=== PATIENT | female | born 1990 | race Caucasian/White ===

== ENCOUNTER 2017-02-21 06:50 | Inpatient (IN) ==
[2017-02-21] MEDS ORDERED: PEPCID PO ONE (08:27)
[2017-02-21] MEDS ORDERED: TYLENOL PO PRN (08:27)
[2017-02-21] MEDS ORDERED: PITOCIN 30 UNITS/LR 30 UNITS/500 ML IV.SOLN IV SCH (08:27)
[2017-02-21] MEDS ORDERED: LR 500 ML IV ONE (08:27)
[2017-02-21] MEDS ORDERED: PEPCID PO PRN (08:27)
[2017-02-21] MEDS ORDERED: REGLAN PO ONE (08:27)
[2017-02-21] MEDS ORDERED: STADOL IV PRN (08:27)
[2017-02-21] MEDS ORDERED: ZOFRAN IV PRN (08:27)
[2017-02-21] MEDS ORDERED: PEPCID IV PRN (08:27)
[2017-02-21] MEDS ORDERED: SODIUM CHLORIDE 0.9% INJ SCH (08:30)
[2017-02-21] MEDS: LR 1,000 ML IV SCH ×2 (08:45→09:46)
[2017-02-21 09:18] LABS: MANUAL DIFF NEEDED? NO
[2017-02-21 09:18] LABS: URINE SOURCE VOIDED
[2017-02-21 09:20] LABS: BASO% 0.1 % (0.0-0.8); EOS# 0.08 X1000 (0.0-0.7); EOS% 0.6 % (0.0-10.0); HEMOGLOBIN 13.2 g/dL (12.0-16.0); IMM GRAN# 0.07 X1000 (0.0-0.04); IMM GRAN% 0.6 % (0.0-0.5); LYMPH# 2.34 X1000 (1.2-3.4); LYMPH% 18.6 % (20.5-51.1); MCH 30.3 PG (27-31); MCHC 34.7 g/dL (33-37); MCV 87.2 FL (81-99); MONO% 4.8 % (1.7-9.3); MPV 9.5 FL (7.4-10.4); NEUT% 75.3 % (42.2-75.2); PLT 307 X1000 (130-400); RBC 4.36 XMIL (4.2-5.4)
[2017-02-21 09:22] LABS: UR AMPHETAMINES QUAL NONE DETECTED (NONE DETECT); UR BARBITUATES QUAL NONE DETECTED (NONE DETECT); UR BENZODIAZEPIN QUAL NONE DETECTED (NONE DETECT); UR CANNABINOIDS QUAL NONE DETECTED (NONE DETECT); UR COCAINE QUAL NONE DETECTED (NONE DETECT); UR MDMA QUAL NONE DETECTED (NONE DETECT); UR METHADONE QUAL NONE DETECTED (NONE DETECT); UR METHAMPHETAMINE QUAL NONE DETECTED (NONE DETECT); UR OPIATES QUAL NONE DETECTED (NONE DETECT); UR OXYCODONE QUAL NONE DETECTED (NONE DETECT); UR PCP QUAL NONE DETECTED (NONE DETECT); UR TCA QUAL NONE DETECTED (NONE DETECT)
[2017-02-21 09:23] LABS: BILIRUBIN URINE NEGATIVE (NEGATIVE); BLOOD URINE 3+ (NEGATIVE); CLARITY CLEAR (CLEAR); COLOR YELLOW; GLUCOSE URINE NEGATIVE (NEGATIVE); LEUKOCYTES URINE 1+ (NEGATIVE); NITRITE URINE NEGATIVE (NEGATIVE); SP GRAVITY URINE 1.005; UROBILINOGEN URINE NORMAL
[2017-02-21] MEDS ORDERED: XYLOCAINE-MPF 1% INJ ONE ×2 (10:25→11:00)
[2017-02-21] MEDS ORDERED: MINERAL OIL ONE (10:26)
[2017-02-21] MEDS ORDERED: FENTANYL-BUPIV-NS 2 MCG-0.1% 200 ML EPIDURAL PRN (10:47)
[2017-02-21] MEDS ORDERED: PITOCIN IM PRN (16:03)
[2017-02-21] MEDS ORDERED: HYDROXYZINE IM PRN (16:03)
[2017-02-21] MEDS ORDERED: XYLOCAINE-MPF 1% INJ PRN (16:03)
[2017-02-21] MEDS ORDERED: PITOCIN 30 UNITS/LR 30 UNITS/500 ML IV.SOLN IV ONE (16:03)
[2017-02-21] MEDS ORDERED: BOOSTRIX VACCINE IM ONE (16:03)
[2017-02-21] MEDS ORDERED: CYTOTEC PO PRN (16:03)
[2017-02-21] MEDS ORDERED: M-M-R II VACCINE SUBQ ONE (16:03)
[2017-02-21] MEDS ORDERED: MINERAL OIL PO PRN (16:03)
[2017-02-21] MEDS ORDERED: BENADRYL IV PRN (16:03)
[2017-02-21] MEDS ORDERED: HYDROXYZINE PO PRN (16:03)
[2017-02-21] MEDS ORDERED: AMBIEN PO PRN (16:03)
[2017-02-21] MEDS ORDERED: PERI MEDS (DERMOPLAST/NUPERCAINAL/TUCKS) MISC PRN (16:03)
[2017-02-21] MEDS ORDERED: NORCO-5 PO PRN (16:03)
[2017-02-21] MEDS ORDERED: NORCO-10 PO PRN (16:03)
[2017-02-21] MEDS ORDERED: PITOCIN 20 UNITS/LR 20 UNITS/1,000 ML IV.SOLN IV SCH (16:03)
[2017-02-21] MEDS ORDERED: BENADRYL PO PRN (16:03)
[2017-02-21] MEDS: MOTRIN PO PRN (17:33)
[2017-02-22 04:26] LABS: MANUAL DIFF NEEDED? NO
[2017-02-22 04:35] LABS: BASO% 0.1 % (0.0-0.8); EOS# 0.14 X1000 (0.0-0.7); HEMATOCRIT 31.3 % (37.0-47.0); HEMOGLOBIN 10.4 g/dL (12.0-16.0); IMM GRAN# 0.04 X1000 (0.0-0.04); IMM GRAN% 0.3 % (0.0-0.5); LYMPH# 2.76 X1000 (1.2-3.4); LYMPH% 19.6 % (20.5-51.1); MCH 29.6 PG (27-31); MCHC 33.2 g/dL (33-37); MCV 89.2 FL (81-99); MONO# 0.86 X1000 (0.11-0.59); MONO% 6.1 % (1.7-9.3); MPV 9.6 FL (7.4-10.4); NEUT% 72.9 % (42.2-75.2); PLT 289 X1000 (130-400); RBC 3.51 XMIL (4.2-5.4)
[2017-02-22] MEDS: PERICOLACE PO SCH ×2 (06:12→21:18)
[2017-02-22] MEDS: PRECARE PO SCH (12:26)
[2017-02-22] MEDS: MOTRIN PO PRN (15:41)
[2017-02-23 08:06] VITALS: BP 138/94
[2017-02-23] MEDS: PRECARE PO SCH (08:07)
== END 2017-02-23 12:40 | disposition home or self-care (01) ==
LOC: OPLD 06:50 → P.LD 07:02 → P.WC 02-22 10:48
PROVIDERS: ADMIT Obstetrics & Gynecology; ATTEND Obstetrics & Gynecology